=== PATIENT | male | born 1995 | race Caucasian/White ===

== ENCOUNTER 2017-04-25 04:04 | Emergency (ER) | payer OTHER ==
[~2017-04-25 04:04] MED LIST: SERO100 PO
== END 2017-04-25 09:59 | disposition other institution (70) ==
LOC: ED 04:04
DX: Z02.89 Encounter for other administrative examinations (principal); F19.10 Other psychoactive substance abuse, uncomplicated; F15.929 Other stimulant use, unspecified with intoxication, unspecified; F10.129 Alcohol abuse with intoxication, unspecified

== ENCOUNTER 2017-04-25 04:04 | Emergency (ER) | payer OTHER ==
[~2017-04-25] VITALS: Ht 177.8 cm; Wt 81.6 kg
[2017-04-25 04:40] LABS: BASOPHIL % 0.4 % (0-2); PLATELET COUNT 318 x10^3mcL (130-400); RED CELL DISTRIBUTION WIDTH 12.9 % (11.5-14.5)
[2017-04-25 04:47] LABS: CALCIUM 9.6 mg/dL (8.5-10.1); CARBON DIOXIDE 21.9 mmol/L (21-32); CHLORIDE SERUM 102 mmol/L (98-107); CREATININE SERUM 1.4 mg/dL (0.7-1.3); GFR1 > 60 mL/min; GLUCOSE SERUM 112 mg/dL (74-106); POTASSIUM SERUM 3.4 mmol/L (3.5-5.1); SODIUM SERUM 141 mmol/L (136-145)
[2017-04-25 04:52] LABS: ALBUMIN 4.7 g/dL (3.4-5.0); ALKALINE PHOSPHATASE 98 U/L (46-116); ALT/SGPT 29 U/L (16-63); AST/SGOT 27 U/L (15-37)
[2017-04-25 04:53] LABS: TOTAL PROTEIN, SERUM 8.8 g/dL (6.4-8.2)
[2017-04-25 05:27] LABS: AMPHETAMINE QUAL UR POSITIVE (NEG <=1000)
[2017-04-25 09:26] VITALS: BP 141/74
== END 2017-04-25 09:59 | disposition other institution (70) ==
LOC: ED 04:04
PROVIDERS: Emergency Medicine
DX: F10.129 Alcohol abuse with intoxication, unspecified (principal); F19.10 Other psychoactive substance abuse, uncomplicated; F15.929 Other stimulant use, unspecified with intoxication, unspecified
CPT/HCPCS: J1200; J1630; J2060; J7030; Q0092

== ENCOUNTER 2018-02-25 02:10 | Emergency (ER) | payer OTHER ==
[~2018-02-25] VITALS: Ht 172.7 cm; Wt 79.4 kg
[2018-02-25 03:37] LABS: CALCIUM 9.3 mg/dL (8.5-10.1); CARBON DIOXIDE 24.7 mmol/L (21-32); CHLORIDE SERUM 101 mmol/L (98-107); CREATININE SERUM 1.5 mg/dL (0.7-1.3); GFR1 > 60 mL/min; GLUCOSE SERUM 94 mg/dL (74-106); POTASSIUM SERUM 3.3 mmol/L (3.5-5.1); SODIUM SERUM 139 mmol/L (136-145)
[2018-02-25 03:39] LABS: BASOPHIL % 0.4 % (0-2); PLATELET COUNT 172 x10^3mcL (130-400); RED CELL DISTRIBUTION WIDTH 13.2 % (11.5-14.5)
[2018-02-25 03:44] LABS: ALBUMIN 4.1 g/dL (3.4-5.0); ALKALINE PHOSPHATASE 72 U/L (46-116); ALT/SGPT 21 U/L (16-63); AST/SGOT 17 U/L (15-37); BILIRUBIN TOTAL 0.7 mg/dL (0.20-1.00); TOTAL PROTEIN, SERUM 7.4 g/dL (6.4-8.2)
[2018-02-25 05:31] LABS: AMPHETAMINE QUAL UR POSITIVE (NEG <=1000)
[2018-02-25 06:02] VITALS: BP 152/89
== END 2018-02-25 06:02 | disposition home or self-care (01) ==
LOC: ED 02:10
PROVIDERS: Emergency Medicine
DX: F15.10 Other stimulant abuse, uncomplicated (principal); E86.0 Dehydration
CPT/HCPCS: G0480; J2060; J7030

== ENCOUNTER 2018-10-24 01:02 | Inpatient (IN) | payer OTHER ==
[~2018-10-24] VITALS: Ht 180.3 cm; Wt 80.8 kg
[2018-10-24 01:04] VITALS: Ht 180.3 cm; Wt 80.8 kg
[2018-10-24 02:31] LABS: BASOPHIL % 0.4 % (0-2); PLATELET COUNT 236 x10^3mcL (130-400)
[2018-10-24 03:03] LABS: ALBUMIN 3.7 g/dL (3.4-5.0); ALKALINE PHOSPHATASE 58 U/L (46-116); ALT/SGPT 27 U/L (16-63); AST/SGOT 24 U/L (15-37); BILIRUBIN TOTAL 0.71 mg/dL (0.20-1.00); CALCIUM 8.1 mg/dL (8.5-10.1); CARBON DIOXIDE 27.2 mmol/L (21-32); CHLORIDE SERUM 103 mmol/L (98-107); CREATININE SERUM 1.2 mg/dL (0.7-1.3); GFR1 > 60 mL/min; GLUCOSE SERUM 96 mg/dL (74-106); SODIUM SERUM 137 mmol/L (136-145)
[2018-10-24 03:07] LABS: POTASSIUM SERUM 2.7 mmol/L (3.5-5.1)
[2018-10-24 05:52] LABS: AMPHETAMINE QUAL UR POSITIVE (See below)
[2018-10-25 17:20] LABS: UA SPECIFIC GRAVITY >=1.030 (1.005-1.035); microscopic required? YES; urine erythrocyte 1+ (NEGATIVE)
[2018-10-25 17:45] VITALS: BP 102/55
[2018-10-25 22:38] VITALS: BP 102/55
== END 2018-10-25 23:45 | disposition short-term general hospital (02) | DRG 425 ==
LOC: ED 01:02 → MU 10-25 08:41
PROVIDERS: Emergency Medicine; Family Medicine
DX: E87.6 Hypokalemia (principal); E83.51 Hypocalcemia; R45.851 Suicidal ideations; F20.9 Schizophrenia, unspecified; F15.10 Other stimulant abuse, uncomplicated; F12.10 Cannabis abuse, uncomplicated; J45.909 Unspecified asthma, uncomplicated; F31.9 Bipolar disorder, unspecified; Z83.3 Family history of diabetes mellitus; Z80.9 Family history of malignant neoplasm, unspecified
CPT/HCPCS: G0480; J2060